=== PATIENT | female | born 1995 | race African-American/Black ===

== ENCOUNTER 2017-10-14 19:49 | Emergency (ER) | payer SELFPAY ==
--- NOTE | 2017-10-14 21:54 | RAD ---
INDICATION: Right knee pain COMPARISON: None TECHNIQUE: 4 view radiograph of the right knee. FINDINGS: The visualized bones are well-corticated and properly aligned. The joint spaces are properly maintained. There is no radiographic evidence of joint effusion. There is no acute fracture, dislocation or other focal bony abnormality. IMPRESSION: Normal knee radiograph as described above. If the patient's symptoms persist, follow-up imaging is recommended.
--- NOTE | 2017-10-14 22:10 | ED ---
Lower Extremity - HPI Summary HPI Summary: Patient is a 21-year-old female who presents emergency department for a right knee injury that occurred yesterday. Pt. states she was walking when she felt a pop in the medial aspect of her right knee and fell to the ground. Associated symptoms of edema. Patient states today pain is improved but she still having pain with walking and presents for evaluation. Symptoms are mild in severity. - History of Current Complaint Chief Complaint: EDExtremityLower Stated Complaint: FALL/RT KNEE PAIN Time Seen by Provider: 10/14/17 21:39 Hx Obtained From: Patient Pain Intensity: 7 - Allergies/Home Medications Allergies/Adverse Reactions: Allergies Allergy/AdvReac Type Severity Reaction Status Date / Time No Known Allergies Allergy Verified 05/08/15 03:29 PMH/Surg Hx/FS Hx/Imm Hx Previously Healthy: Yes Infectious Disease History: No Infectious Disease History: Denies: Traveled Outside the [place] in Last 30 Days - Social History Occupation: Employed Full-time Lives: With Family Alcohol Use: Occasionally Substance Use Type: Reports: Marijuana Smoking Status (MU): Current Every Day Smoker Review of Systems Positive: Other - right knee pain Negative: Weakness, Paresthesia, Numbness All Other Systems Reviewed And Are Negative: Yes Physical Exam Triage Information Reviewed: Yes Vital Signs On Initial Exam: Initial Vitals Temp Pulse Resp BP Pulse Ox 98.6 F 92 20 124/59 99 10/14/17 20:05 10/14/17 20:05 10/14/17 20:05 10/14/17 20:05 10/14/17 20:05 Vital Signs Reviewed: Yes Appearance: Positive: Well-Appearing - Patient lying in bed in no acute distress. Pleasant. Head/Face: Positive: Normal Head/Face Inspection Eyes: Positive: Normal, JAKE Neck: Positive: Supple Musculoskeletal: Positive: Other - Pain on palpation to the medial aspect of the right knee. No overlying erythema. Pain with flexion of the knee. No increase in laxity. Leg is neurovascularly intact. Neurological: Positive: Normal, CN Intact II-III Psychiatric: Positive: Normal Diagnostics - Vital Signs Vital Signs Temp Pulse Resp BP Pulse Ox 10/14/17 20:05 98.6 F 92 20 124/59 99 - Laboratory Lab Statement: Any lab studies that have been ordered have been reviewed, and results considered in the medical decision making process. Lower Extremity Course/Dx - Course Course Of Treatment: Patient presenting to the ER for a minor right knee injury. X-ray is negative for acute findings, reading per radiology. Yash wrap was placed. Patient is able to ambulate and declines crutches. Recently moved to the area, advised to call the for lying to establish PCP. Also given information for orthopedics for follow-up symptoms continue. To ice and elevate. NSAIDS her pain as directed. Patient understands and agrees with plan. - Diagnoses Differential Diagnosis/HQI/PQRI: Positive: Fracture (Closed), Sprain, Strain Provider Diagnoses: Knee pain Discharge - Sign-Out/Discharge Documenting (check all that apply): Discharge/Admit/Transfer - Discharge Plan Condition: Good Disposition: HOME Patient Education Materials: Knee Sprain (ED) Forms: *Work Release Referrals: [facility] [place]Outside] Jonatan Hall MD [Medical Doctor] - No Primary Care Phys,NOPCP [Primary Care Provider] - Additional Instructions: Call the physician referral line to establish a PCP Call Dr. Hall's office to follow up with orthopedics if symptoms persist Ice and elevate Ibuprofen for pain as directed Activity as tolerated - Billing Disposition and Condition Condition: GOOD Disposition: HOME
[2017-10-14 23:13] VITALS: BP 151/99
== END 2017-10-14 22:20 | disposition home or self-care (01) ==
LOC: ED 19:49
DX: S89.91XA Unspecified injury of right lower leg, initial encounter (principal); W19.XXXA Unspecified fall, initial encounter; Y93.01 Activity, walking, marching and hiking; Y92.9 Unspecified place or not applicable; F17.200 Nicotine dependence, unspecified, uncomplicated
CPT/HCPCS: 99282